=== PATIENT | female | born 1955 | race Asian ===

== ENCOUNTER 2017-05-19 08:32 | Outpatient (CLI) | payer BC ==
--- NOTE | 2017-05-19 09:08 | XRay Report ---
Left knee 4 views. History: Knee pain. Findings: There is moderate narrowing of the joint space. Bony mineralization is normal. There no fractures or other acute findings. There softtissueabnormalities. Impression:Osteoarthritis.
== END 2017-05-19 08:33 | disposition home or self-care (01) ==
LOC: SPVIMAG 08:32
DX: M17.12 Unilateral primary osteoarthritis, left knee (principal)